=== PATIENT | male | born 1990 | race Two or more races ===

== ENCOUNTER 2018-03-01 18:05 | Emergency (ER) | payer OTHER ==
[~2018-03-01] VITALS: Ht 185.4 cm; Wt 115.7 kg
[2018-03-01] MEDS ORDERED: PNEU16DI2 ×2 (18:27→18:28)
[2018-03-01] MEDS ORDERED: SYNTHROID100 MCG (18:27)
[2018-03-01] MEDS ORDERED: SYNTHROID137 MCG (18:28)
[2018-03-01] MEDS ORDERED: ADERAL (18:29)
[2018-03-01] MEDS ORDERED: SEROQUEL400 MG (18:30)
[2018-03-02] MEDS ORDERED: MECLIZINE HCL25 MG PO (14:42)
== END 2018-03-02 14:59 | disposition home or self-care (01) ==
LOC: ER 18:05
DX: R42 Dizziness and giddiness (principal)

== ENCOUNTER 2018-03-03 09:42 | Outpatient (CLI) | payer OTHER ==
[~2018-03-03] VITALS: Ht 190.5 cm; Wt 115.2 kg
[~2018-03-03 09:42] MED LIST: ADERAL; MECLIZINE HCL25 MG PO; PNEU16DI2; SEROQUEL400 MG; SYNTHROID100 MCG; SYNTHROID137 MCG
== END 2018-03-03 11:52 | disposition home or self-care (01) ==
LOC: OFIC 805 09:42
DX: H60.8X2 Other otitis externa, left ear (principal); R42 Dizziness and giddiness; H61.22 Impacted cerumen, left ear

== ENCOUNTER 2018-11-14 09:00 | Emergency (ER) | payer OTHER ==
[~2018-11-14] VITALS: Ht 185.4 cm; Wt 127.0 kg
== END 2018-11-14 14:00 | disposition home or self-care (01) ==
LOC: ER 09:00
DX: S82.54XA Nondisplaced fracture of medial malleolus of right tibia, initial encounter for closed fracture (principal); X50.3XXA Overexertion from repetitive movements, initial encounter; Y93.89 Activity, other specified; Y92.89 Other specified places as the place of occurrence of the external cause; Y99.8 Other external cause status

== ENCOUNTER 2020-02-05 09:28 | Emergency (ER) | payer OTHER ==
[~2020-02-05] VITALS: Ht 182.9 cm; Wt 124.7 kg
== END 2020-02-05 15:23 | disposition home or self-care (01) ==
LOC: ER 09:28
DX: E03.8 Other specified hypothyroidism (principal); E83.52 Hypercalcemia; R42 Dizziness and giddiness; Z03.818 Encounter for observation for suspected exposure to other biological agents ruled out